=== PATIENT | female | born 1950 | race African-American/Black ===

== ENCOUNTER 2021-05-10 07:42 | Inpatient (IN) | payer MEDICARE, MEDICAID ==
[~2021-05-10] VITALS: Ht 160 cm; Wt 100.6 kg
[2021-05-10] VITALS (13 sets, daily range): BP systolic 141–200; BP diastolic 63–93
[2021-05-10] MEDS ORDERED: LABETALOL 100MG/20ML VIAL IV STA ×2 (08:06→10:00)
[2021-05-10] MEDS ORDERED: FURO20TA2 PO (08:10)
[2021-05-10] MEDS ORDERED: LOSA100T50 PO (08:10)
[2021-05-10] MEDS ORDERED: CARV25TA PO (08:10)
--- NOTE | 2021-05-10 08:31 | REP ---
INDICATION: CVA - Nursing interventions must not delay CT COMPARISON: None. TECHNIQUE: Axial noncontrast images from the skull base to the thoracic inlet with coronal reformations. This CT examination was performed using the following dose reduction techniques: Automated exposure control, adjustment of mA and/or kv according to the patient's size, and use of iterative reconstruction technique. FINDINGS: Atrophy with periventricular leukomalacia and microvascular ischemic changes are appreciated. The ventricles and sulci are symmetric. Bucio-white differentiation is maintained. There is no evidence for acute intracranial hemorrhage, mass/mass effect, pathology or infarction. No extra-axial fluid collection. Calvarium is intact. Paranasal sinuses and mastoid air cells are clear. IMPRESSION: Atrophy and microvascular ischemic changes. No acute intracranial hemorrhage, infarction, or mass/mass effect. <Electronically signed by Bj Gomes > 05/10/21 [id number]
[2021-05-10 09:06] LABS: BASO % 0.4 % (0.0-1.0); EOS # 0.1 10^3/uL (0.0-0.5); EOS % 1.1 % (0.0-3.0); HEMATOCRIT 43.2 % (36.0-47.0); HEMOGLOBIN 14.2 g/dl (12.0-15.5); LYMPH # 1.6 10^3/uL (1.5-5.0); LYMPH % 17.1 % (24.0-44.0); MEAN CORPUSCULAR HEMOGLOBIN 28.5 pg (27.0-33.0); MEAN CORPUSCULAR HGB CONC 32.9 g/dl (32.0-36.5); MEAN CORPUSCULAR VOLUME 86.6 fl (80.0-96.0); MONO # 0.8 10^3/uL (0.0-0.8); MONO % 8.2 % (2.0-8.0); NEUTROPHILS # 6.7 10^3/uL (1.5-8.5); NEUTROPHILS % 72.9 % (36.0-66.0); PLATELET COUNT, AUTOMATED 241 10^3/uL (150-450); RED BLOOD COUNT 4.99 10^6/uL (4.00-5.40); WHITE BLOOD COUNT 9.2 10^3/uL (4.0-10.0)
--- NOTE | 2021-05-10 09:26 | REP ---
INDICATION: CVA COMPARISON: None. TECHNIQUE: Portable AP view of the chest FINDINGS: The mediastinum and cardiac silhouette are within normal limits for portable technique. The lung nagy are clear without acute consolidation, effusion, or pneumothorax. Skeletal structures are intact. IMPRESSION: No acute cardiopulmonary process appreciated. <Electronically signed by Bj Gomes > 05/10/21 [id number]
[2021-05-10 09:38] LABS: CK-MB VALUE MASS 1.4 NG/ML (<3.6); MB/CK RELATIVE INDEX 0.58 (< OR =4); TROPONIN I 0.03 NG/ML (< 0.10)
[2021-05-10 09:59] LABS: RSV AMPLIFICATION NEGATIVE (NEGATIVE)
[2021-05-10] MEDS ORDERED: LOSARTAN 50MG TABLET PO ONE (10:05)
[2021-05-10] MEDS ORDERED: [UNRECOGNIZED DRUG - OTHER] PO (10:48)
[2021-05-10] MEDS ORDERED: MAGNESIUM PO (10:48)
[2021-05-10] MEDS ORDERED: KCL PO (10:48)
[2021-05-10] MEDS ORDERED: [UNRECOGNIZED DRUG - OTHER] PO (10:48)
[2021-05-10] MEDS ORDERED: D31000TA2 PO (10:48)
[2021-05-10] MEDS ORDERED: CODCAP25 PO (10:48)
[2021-05-10] MEDS ORDERED: MAGN250T22 PO (10:48)
[2021-05-10] MEDS ORDERED: HOME MED LIST COMPLETE! XX SCH (10:50)
[2021-05-10] MEDS ORDERED: ASPIRIN 81 MG CHEW TABLET PO ONE (11:00)
[2021-05-10] MEDS ORDERED: ACETAMINOPHEN TAB 650MG DOSE (2X325MG) PO PRN (11:00)
[2021-05-10] MEDS ORDERED: niCARdipine IV 40 MG in IV 1 EA IV SCH (11:00)
[2021-05-10] MEDS ORDERED: GLUCOSE 4GM CHEW TABLET PO PRN (11:15)
[2021-05-10] MEDS ORDERED: GLUCAGON INJ 1MG VIAL SC PRN (11:15)
[2021-05-10] MEDS ORDERED: DEXTROSE 50% 50 ML SYRINGE IV PRN (11:15)
--- NOTE | 2021-05-10 11:29 | HPEPDOC ---
General Date of Admission 05/10/21 Date of Service: May 10, 2021 Chief Complaint The patient is a 70-year-old female admitted with a reason for visit of Weakness. Source: Patient Exam Limitations: No limitations History of Present Illness Patient is 70 years old female with past medical history of sarcoidosis, hypertension, hyperlipidemia, stroke in 2003 presented to the hospital with hypertensive emergency and right leg weakness. Patient stated that yesterday around 5 PM she developed right leg weakness and she could not stand up. The right leg weakness lasted around 2 hours and then completely resolved. Patient stated that her daughter noticed some difficulties in her speech, subsequently completely resolved. Today in the morning patient had right leg weakness again which resolved when she arrived in ER. In ER patient was found to have elevated blood pressure 238/113, EKG showed sinus rhythm, head CT was negative for acute stroke. Chest x-ray showed no acute cardiopulmonary process. Home Medications Scheduled Carvedilol (Carvedilol) 25 Mg Tablet, 12.5 MG PO BID, (Reported) Cholecalciferol (Vitamin D3) (Vitamin D3) 1,000 Unit Tablet, 1,000 UNITS PO DERIK Y, (Reported) Furosemide (Furosemide) 20 Mg Tablet, 20 MG PO BID, (Reported) HAS NOT TAKEN IN 2 MONTHS Losartan Potassium (Losartan Potassium) 100 Mg Tablet, 100 MG PO QHS, (Reported) Magnesium (Magnesium) 250 Mg Tablet, 250 MG PO DAILY, (Reported) Vit A and D3 in Cod Liver Oil (Cod Liver Oil Softgel) 1 Each Capsule, 1 CAP PO DAILY, (Reported) [Kcl/Magnesium] , 1 CAP PO DAILY, (Reported) KCL/MAGNESIUM ASPARTATE 50MG/20MG [Wild Oregano Oil] , 175 MG PO DAILY, (Reported) [Zinc Quercetin] , 1 CAP PO DAILY, (Reported) 22MG / 800MG Allergies Coded Allergies: Penicillins (Verified Allergy, Mild, rash, 05/10/21) iodine (Verified Allergy, Unknown, burning sensation, 05/10/21) Past Medical History Medical History sarcoidosis, hypertension, hyperlipidemia, stroke in 2003, type 2 diabetes Family History Patient stated that her mom had a stroke, father had hypertension Social History * Smoker: Denies Alcohol: Denies Drugs: denies A-FIB/CHADSVASC A-FIB History Current/History of A-Fib/PAF?: No Current PO Anticoag Therapy: No Review of Systems Constitutional: Denies: Chills Eyes: Denies: Pain ENT: Denies: Head Aches Skin: Denies: Rash, Lesions Pulmonary: Denies: Dyspnea Cardiovascular: Denies: Chest Pain Genitourinary: Denies: Dysuria Hematologic: Denies: Bruising, Bleeding Excessively Endocrine: Denies: Polydipsia Musculoskeletal: Denies: Neck Pain Neurological: Reports: Weakness (right leg weakness ) Psych: Reports: Mood Normal Physical Examination General Exam: Positive: Alert, Cooperative Eye Exam: Positive: PERRLA ENT Exam: Positive: Atraumatic Neck Exam: Positive: Supple; Negative: JVD Chest Exam: Positive: Clear to auscultation Heart Exam: Positive: Rate Normal Telemetry: Positive: No significant arrhythmia Abdomen Exam: Positive: Normal bowel sounds Extremity Exam: Negative: Clubbing, Cyanosis Skin Exam: Positive: Nl turgor and temperature Neuro Exam: Positive: Normal Gait, Strength at 5/5 X4 ext, Cranial Nerves 3-12 NL Psych Exam: Positive: Oriented x 3 Vital Signs Vital Signs Date Time Temp Pulse Resp B/P (MAP) Pulse Ox O2 Delivery O2 Flow Rate FiO2 05/10/21 10:27 69 16 97 Room Air 05/10/21 10:17 230/117 (154) 05/10/21 07:43 97.7 Laboratory Data Labs 24H Laboratory Tests 2 05/10/21 08:05: Immature Granulocyte % (Auto) 0.3, Neutrophils (%) (Auto) 72.9H, Lymphocytes (%) (Auto) 17.1L, Monocytes (%) (Auto) 8.2H, Eosinophils (%) (Auto) 1.1, Basophils (%) (Auto) 0.4, Neutrophils # (Auto) 6.7, Lymphocytes # (Auto) 1.6, Monocytes # (Auto) 0.8, Eosinophils # (Auto) 0.1, Basophils # (Auto) 0.0, Nucleated Red Blood Cells % (auto) 0.0, Activated Partial Thromboplast Time 28.3, Total Creati ne Kinase 243H, Creatine Kinase MB 1.4, Creatine Kinase MB Relative Index 0.58, Troponin I 0.03 05/10/21 08:29: Bedside Glucose (Misc Panel) 139H 05/10/21 08:30: POC Glucose (Misc Panel) 152H, POC Sodium (Misc Panel) 141, POC Potassium (Misc Panel) 3.7, POC Chloride (Misc Panel) 105, POC Total CO2 (Misc Panel) 24.0, POC Blood Urea Nitrogen (Misc Panel 20, POC Ionized Calcium (Misc Panel) 4.6, POC Creatinine (Misc Panel) 0.8, POC Hematocrit (Misc Panel) 42.0 05/10/21 08:47: POC Prothrombin Time (Misc) 12.1, POC INR (Misc) 1.0 05/10/21 09:08: Coronavirus (COVID-19)(PCR) NEGATIVE, Influenza Type A (RT-PCR) NEGATIVE, Influenza Type B (RT-PCR) NEGATIVE, Respiratory Syncytial Virus (PCR) NEGATIVE CBC/BMP Laboratory Tests 05/10/21 08:05 Assessment/Plan Patient is 70 years old female with past medical history of sarcoidosis, hypertension, hyperlipidemia, stroke in 2003 presented to the hospital with hypertensive emergency and right leg weakness. Patient stated that yesterday around 5 PM she developed right leg weakness and she could not stand up. The right leg weakness lasted around 2 hours and then completely resolved. Patient stated that her daughter noticed some difficulties in her speech, subsequently completely resolved. Today in the morning patient had right leg weakness again which resolved when she arrived in ER. In ER patient was found to have elevated blood pressure 238/113, EKG showed sinus rhythm, head CT was negative for acute stroke. Chest x-ray showed no acute cardiopulmonary process. Problems (1) TIA (transient ischemic attack) Status: Acute Problem Text: Patient has multiple risk factors including type 2 diabetes, previous history of stroke, hypertension We will proceed with echo, MRI, MRA Aspirin, statin Telemetry (2) Hypertensive emergency Status: Chronic Problem Text: Her neurological presentation could be attributed to hypertensive emergency, however patient has multiple risk factors for stroke We will keep her blood pressure in the range 160-180 Nicardipine drip Continue home meds (3) HLD (hyperlipidemia) Status: Chronic Problem Text: I started high potency atorvastatin 80 mg Patient did not take statin (4) Sarcoidosis Status: Chronic Problem Text: Not in acute exacerbation Follow-up with director of global sales in the outpatient settings Plan / VTE VTE Prophylaxis Ordered?: Yes ALHAJI KEENE DO May 10, 2021 11:29
[2021-05-10] MEDS ORDERED: hydrALAZINE 20MG/ML 1ML VIAL (J0360 PER 20MG) IV STA (11:35)
[2021-05-10] MEDS: FUROSEMIDE 20 MG TAB PO SCH ×2 (11:55→17:11)
[2021-05-10] MEDS: HumaLOG INSULIN (NovoLOG) PER UNIT SC SCH ×3 (12:51→20:55)
--- NOTE | 2021-05-10 20:15 | ECGEPIP ---
[facility] - ED Test Date: 2021-05-10 Pat Name: MELODY PARSONS Department: Room: - Gender: Female Labourers: : 1950 Requested By: Anita Carrillo Order Number: [id number] Reading MD: Toñito Edwards Measurements Intervals Richardson Rate: 73 P: 50 CT: 180 QRS: -45 QRSD: 98 T: 99 QT: 424 QTc: 467 Interpretive Statements Normal sinus rhythm Left anterior fascicular block Moderate voltage criteria for LVH, may be normal variant ( R in aVL , [place] product ) Nonspecific T wave abnormality Comparison tracing not on file Electronically Signed on 05-10-2021 20:15:05 EDT by Toñito Edwards
[2021-05-10] MEDS: CARVedilol 12.5 MG TAB PO SCH (20:56)
[2021-05-10] MEDS: ATORVASTATIN 20 MG TAB PO SCH (20:56)
--- NOTE | 2021-05-10 22:31 | REPVR ---
PROCEDURE INFORMATION: Exam: MRA Head Without Contrast; Arteriography Exam date and time: 05/10/2021 8:47 PM Age: 70 years old Clinical indication: Weakness; Patient HX: HX prior CVA; Additional info: TIA TECHNIQUE: Imaging protocol: Magnetic resonance angiography head without contrast. Exam focused on the arteries. COMPARISON: CT Head without contrast 2021-05-10 08:07 FINDINGS: ANTERIOR CIRCULATION: Right internal carotid artery: Intracranial segment is patent with no significant stenosis. No aneurysm. Right middle cerebral artery: Minimal right MCA atherosclerosis. Right anterior cerebral artery: No occlusion or significant stenosis. No aneurysm. Left internal carotid artery: Question small left medial paraclinoid ICA aneurysm measuring 4 mm on series 801, image 107. Left middle cerebral artery: Mild moderate left MCA atherosclerotic disease. The major branches of the left MCA are widely patent. Left anterior cerebral artery: No occlusion or significant stenosis. No aneurysm. POSTERIOR CIRCULATION: Right vertebral artery: No occlusion or significant stenosis. No aneurysm. Left vertebral artery: Mild left vertebral artery distal intracranial artery stenosis. Basilar artery: No occlusion or significant stenosis. No aneurysm. Right posterior cerebral artery: Moderate severe focal right [employer] P1/P2 junction segment stenosis. Question right posterior communicating artery tiny infundibulum versus aneurysm measuring 2 mm on series 801, image 105. Left posterior cerebral artery: Moderate focal left [employer] P1/P2 junction stenosis. IMPRESSION: 1. Moderate severe focal right [employer] P1/P2 junction segment stenosis. 2. Moderate focal left [employer] P1/P2 junction stenosis. Mild left vertebral artery distal intracranial artery stenosis. 3. Minimal right MCA atherosclerosis. Mild moderate left MCA atherosclerotic disease. The major branches of the left MCA are widely patent. 4. Question small left medial paraclinoid ICA aneurysm measuring 4 mm on series 801, image 107. 5. Question right posterior communicating artery tiny infundibulum versus aneurysm measuring 2 mm on series 801, image 105. Electronically signed by: Toñito Olivares On 05/10/2021 22:31:22 PM
--- NOTE | 2021-05-10 22:31 | REPVR ---
PROCEDURE INFORMATION: Exam: MR Head Without Contrast Exam date and time: 05/10/2021 8:47 PM Age: 70 years old Clinical indication: Weakness, extremity; Left; Patient HX: HX prior CVA 2003; Additional info: TIA TECHNIQUE: Imaging protocol: MR of the head without contrast. COMPARISON: CT Head without contrast 2021-05-10 08:07 FINDINGS: Brain: Couple small punctate acute lacunar infarcts within the left frontal centrum semi ovale, and left pre and postcentral gyrus cortex. Mild chronic FLAIR signal hyperintense cerebral white matter disease. Several chronic periventricular and basal ganglia lacunar infarcts. Chronic gradient susceptible foci compatible with chronic blood products or cavernomas, with the predilection for central christ[place] structures indicating likely from chronic hypertensive microhemorrhages. Cerebral ventricles: Normal. No ventriculomegaly. Bones/joints: Unremarkable. Paranasal sinuses: Normal as visualized. No acute sinusitis. Mastoid air cells: Normal as visualized. No mastoid effusion. Orbital cavity: Unremarkable. Soft tissues: Unremarkable. IMPRESSION: 1. Couple small punctate acute lacunar infarcts within the left frontal centrum semi ovale, and left pre and postcentral gyrus cortex. 2. Chronic gradient susceptible foci compatible with chronic blood products or cavernomas, with the predilection for [place] structures indicating likely from chronic hypertensive microhemorrhages. Electronically signed by: Toñito Olivares On 05/10/2021 22:32:06 PM
[2021-05-11] VITALS (19 sets, daily range): BP systolic 156–196; BP diastolic 62–104
[2021-05-11] MEDS ORDERED: hydrALAZINE 20MG/ML 1ML VIAL (J0360 PER 20MG) IV ONE (05:00)
[2021-05-11 05:22] LABS: HEMATOCRIT 42.6 % (36.0-47.0); HEMOGLOBIN 14.2 g/dl (12.0-15.5); MEAN CORPUSCULAR HEMOGLOBIN 29.2 pg (27.0-33.0); MEAN CORPUSCULAR HGB CONC 33.3 g/dl (32.0-36.5); MEAN CORPUSCULAR VOLUME 87.5 fl (80.0-96.0); PLATELET COUNT, AUTOMATED 250 10^3/uL (150-450); RED BLOOD COUNT 4.87 10^6/uL (4.00-5.40); WHITE BLOOD COUNT 10.3 10^3/uL (4.0-10.0)
[2021-05-11 05:54] LABS: ALBUMIN 3.2 GM/DL (3.2-5.2); ALT/SGPT 21 U/L (12-78); BILIRUBIN,TOTAL 0.9 MG/DL (0.2-1.0); BLOOD UREA NITROGEN 14 MG/DL (7-18); CALCIUM LEVEL 9.1 MG/DL (8.8-10.2); CARBON DIOXIDE LEVEL 27 MEQ/L (21-32); CHLORIDE LEVEL 109 MEQ/L (98-107); CREATININE FOR GFR 0.78 MG/DL (0.55-1.30); GLOMERULAR FILTRATION RATE > 60.0 (>39); GLUCOSE, FASTING 115 MG/DL (70-100); POTASSIUM SERUM 3.7 MEQ/L (3.5-5.1); SODIUM LEVEL 141 MEQ/L (136-145); TOTAL PROTEIN 7.3 GM/DL (6.4-8.2)
[2021-05-11] MEDS: HumaLOG INSULIN (NovoLOG) PER UNIT SC SCH ×4 (07:30→19:51)
--- NOTE | 2021-05-11 08:25 | REP ---
INDICATION: Hypertension. R/O Renal Artery Stenosis COMPARISON: None. TECHNIQUE: Real-time ultrasound evaluation and duplex Doppler interrogation of the extracranial carotid vasculature is performed. FINDINGS: Antegrade flow is observed in both vertebral arteries. Right carotid: The right common carotid artery shows diffuse intimal thickening but is otherwise unremarkable. There ismild mixed plaquing in the right carotid bulb and proximal ICA on two-dimensional scanning. Color flow and spectral Doppler interrogation are unremarkable on the right. Velocity chart right carotid: Right CCA PSV: 95 cm/S Right ICA PSV: 75 cm/S Right ICA EDV: 19 cm/S Right ECA PSV: 104 cm/S Right ICA/CCA ratio: 0.8 Left carotid: The left common carotid artery shows diffuse intimal thickening but is otherwise unremarkable. There is moderate mixed plaquing in the left carotid bulb and proximal ICA on two-dimensional scanning. Color flow and spectral Doppler interrogation are unremarkable on the left. Velocity chart left carotid: Left CCA PSV: 124 cm/S Left ICA PSV: 88 cm/S Left ICA EDV: 25 cm/S Left ECA PSV: 104 cm/S Left ICA/CCA ratio: 0.7 IMPRESSION: Less than 50% category narrowing in the right internal carotid artery by Doppler velocity criteria. Less than 50% category narrowing in the left ICA by Doppler velocity criteria. <Electronically signed by Taco Cavazos > 05/11/21 [id number]
--- NOTE | 2021-05-11 08:29 | REP ---
INDICATION: Hypertension. R/O Renal Artery Stenosis COMPARISON: None TECHNIQUE: Real time christianson scale ultrasound examination using curved array transducer followed by color Doppler evaluation of the renal vasculature. FINDINGS: Kidneys are normal in contour, size, echogenicity, and reniform shape. Right kidney measures 12.8 x 4.4 x 4.6 cm. Left kidney measures 11.1 x 4.4 x 5.0 cm. The bladder is grossly unremarkable. Color Doppler evaluation is significantly limited and overlying abdominal gas obscured evaluation of the bilateral main renal arteries. Renal artery velocities could only be obtained at the renal hilum and are inaccurate for evaluation of renal arterial stenosis. Peak aortic velocity: 95.4 centimeters/second RIGHT KIDNEY Renal arterial velocity: 120.9 centimeters/second Renal-aortic ratio: 1.3 Intrarenal resistive indices: 0.62-0.79 Intrarenal acceleration times: 0.033-0.058 LEFT KIDNEY Renal arterial velocity: 77.1 centimeters/second Renal-aortic ratio: 0.8 Intrarenal resistive indices: 0.59-0.67 Intrarenal acceleration times: 0.029-0.042 IMPRESSION: 1. Kidneys appear normal. 2. Doppler interegation was significantly limited and essentially nondiagnostic for evaluation of renal arterial stenosis. Consider re-evaluation or MRA if symptoms persist. <Electronically signed by Bj Gomes > 05/11/21 [id number]
[2021-05-11] MEDS: ENOXAPARIN 40MG/0.4ML SYRINGE (J1650 PER 10MG) SC SCH (09:04)
[2021-05-11] MEDS: ASPIRIN 81 MG CHEW TABLET PEG SCH (09:05)
[2021-05-11] MEDS: CARVedilol 12.5 MG TAB PO SCH ×2 (09:05→19:51)
[2021-05-11] MEDS: FUROSEMIDE 20 MG TAB PO SCH ×2 (09:05→16:57)
[2021-05-11] MEDS ORDERED: SLF 3 ML SYR IV PRN (09:50)
--- NOTE | 2021-05-11 13:16 | IPNPDOC ---
Text Note Date of Service The patient was seen on 05/11/21. NOTE Subjective: Patient told me in the morning that around 2 months ago she stopped taking all your antihypertensive medications and she replaced them for herbal supplements. Objective: GENERAL APPEARANCE: Obese female HEENT: no scleral icterus, no JVD, EOMI CARDIOVASCULAR: S1S2 LUNGS: Diminished lung sounds bilaterally ABDOMEN: soft & not tender w palpation MUSCULOSKELETAL: no cyanosis, no swelling INTEGUMENT: no generalized pallor NEUROLOGICAL: cranial nerve function from 2-12 intact, follows commands, speech not dysarthric Assessment/Plan Patient is 70 years old female with past medical history of sarcoidosis, hypertension, hyperlipidemia, stroke in 2003 presented to the hospital with hypertensive emergency and right leg weakness. Patient stated that yesterday ar ound 5 PM she developed right leg weakness and she could not stand up. The right leg weakness lasted around 2 hours and then completely resolved. Patient stated that her daughter noticed some difficulties in her speech, subsequently completely resolved. Today in the morning patient had right leg weakness again which resolved when she arrived in ER. In ER patient was found to have elevated blood pressure 238/113, EKG showed sinus rhythm, head CT was negative for acute stroke. Chest x-ray showed no acute cardiopulmonary process. CVA Most likely secondary to uncontrolled blood pressure MRI showed Couple small punctate acute lacunar infarcts within the left frontal centrum semi ovale, and left pre and postcentral gyrus cortex. Continue statin, continue aspirin Continue to control blood pressure Await echo Follow-up with neurologist in the outpatient settings Doppler carotid ultrasound shows not significant stenosis of both arteries PT/OT Hypertensive emergency/hypertension Continue losartan, I added hydralazine p.o. for better control of hypertension HLD (hyperlipidemia) Continue atorvastatin 80 mg Patient did not take statin before Sarcoidosis Not in acute exacerbation Follow-up with assistant engineer in the outpatient settings DVT prophylaxis with Lovenox VS,Fishbone, I+O VS, Fishbone, I+O Laboratory Tests 05/11/21 04:57 Vital Signs Date Time Temp Pulse Resp B/P (MAP) Pulse Ox O2 Delivery O2 Flow Rate FiO2 05/11/21 12:15 168/92 05/11/21 11:38 97.0 75 18 96 Room Air I&O- Last 24 Hours up to 6 AM 05/11/21 06:00 Intake Total 540 ml Output Total 1000 ml Balance -460 ml DROZHZHIN,ALHAJI DO May 11, 2021 13:16
[2021-05-11] MEDS ORDERED: BISACODYL 5 MG TAB PO ONE (13:45)
[2021-05-11] MEDS ORDERED: **hydrALAZINE** 10 MG TAB PO SCH ×2 (14:00→19:30)
[2021-05-11] MEDS: SLF 3 ML SYR IV SCH ×2 (14:26→20:47)
[2021-05-11] MEDS: LABETALOL 100MG/20ML VIAL IV PRN (18:03)
[2021-05-11] MEDS: ATORVASTATIN 20 MG TAB PO SCH (19:51)
[2021-05-11] MEDS: LOSARTAN 50MG TABLET PO SCH (19:51)
[2021-05-11] MEDS: **hydrALAZINE** 10 MG TAB PO SCH (20:47)
[2021-05-12] VITALS (11 sets, daily range): BP systolic 142–182; BP diastolic 66–106
[2021-05-12] MEDS: LABETALOL 100MG/20ML VIAL IV PRN ×2 (03:46→08:47)
[2021-05-12] MEDS: SLF 3 ML SYR IV SCH ×3 (05:17→21:44)
[2021-05-12] MEDS: **hydrALAZINE** 10 MG TAB PO SCH ×3 (05:18→21:47)
[2021-05-12 06:26] LABS: HEMATOCRIT 44.1 % (36.0-47.0); HEMOGLOBIN 14.4 g/dl (12.0-15.5); MEAN CORPUSCULAR HEMOGLOBIN 28.8 pg (27.0-33.0); MEAN CORPUSCULAR HGB CONC 32.7 g/dl (32.0-36.5); MEAN CORPUSCULAR VOLUME 88.2 fl (80.0-96.0); PLATELET COUNT, AUTOMATED 238 10^3/uL (150-450); WHITE BLOOD COUNT 10.4 10^3/uL (4.0-10.0)
[2021-05-12 06:53] LABS: BLOOD UREA NITROGEN 13 MG/DL (7-18); CALCIUM LEVEL 9.2 MG/DL (8.8-10.2); CARBON DIOXIDE LEVEL 29 MEQ/L (21-32); CHLORIDE LEVEL 107 MEQ/L (98-107); GLOMERULAR FILTRATION RATE > 60.0 (>39); GLUCOSE, FASTING 117 MG/DL (70-100); POTASSIUM SERUM 3.3 MEQ/L (3.5-5.1); SODIUM LEVEL 141 MEQ/L (136-145)
[2021-05-12] MEDS: ASPIRIN 81 MG CHEW TABLET PEG SCH (08:37)
[2021-05-12] MEDS: HumaLOG INSULIN (NovoLOG) PER UNIT SC SCH ×4 (08:37→20:17)
[2021-05-12] MEDS: FUROSEMIDE 20 MG TAB PO SCH ×2 (08:38→17:57)
[2021-05-12] MEDS: CARVedilol 12.5 MG TAB PO SCH ×2 (08:38→20:14)
[2021-05-12] MEDS: ENOXAPARIN 40MG/0.4ML SYRINGE (J1650 PER 10MG) SC SCH (08:39)
[2021-05-12] MEDS ORDERED: BISACODYL 5 MG TAB PO SCH (09:00)
[2021-05-12] MEDS ORDERED: POTASSIUM CHLORIDE 10 MEQ SR TABLET PO ONE (10:35)
--- NOTE | 2021-05-12 12:01 | IPNPDOC ---
Text Note Date of Service The patient was seen on 05/12/21. NOTE Subjective: No any acute events overnight. Patient stated that she had some dizziness when she seated up. Objective: GENERAL APPEARANCE: Obese female HEENT: no scleral icterus, no JVD, EOMI CARDIOVASCULAR: S1S2 LUNGS: Diminished lung sounds bilaterally ABDOMEN: soft & not tender w palpation MUSCULOSKELETAL: no cyanosis, no swelling INTEGUMENT: no generalized pallor NEUROLOGICAL: cranial nerve function from 2-12 intact, follows commands, speech not dysarthric Assessment/Plan Patient is 70 years old female with past medical history of sarcoidosis, hypertension, hyperlipidemia, stroke in 2003 presented to the hospital with hypertensive emergency and right leg weakness. Patient stated that yesterday around 5 PM she developed right leg weakness and she could not stand up. The right leg weakness lasted around 2 hours and then completely resolved. Patient stated that her daughter noticed some difficulties in her speech, subsequently completely resolved. Today in the morning patient had right leg weakness again which resolved when she arrived in ER. In ER patient was found to have elevated blood pressure 238/113, EKG showed sinus rhythm, head CT was negative for acute stroke. Chest x-ray showed no acute cardiopulmonary process. CVA Most likely secondary to uncontrolled blood pressure MRI showed Couple small punctate acute lacunar infarcts within the left frontal centrum semi ovale, and left pre and postcentral gyrus cortex. Continue statin, continue aspirin Continue to control blood pressure Await echo Follow-up with neurologist in the outpatient settings Doppler carotid ultrasound shows not significant stenosis of both arteries PT/OT Hypertensive emergency/hypertension Continue losartan, I added and increased with dose of hydralazine p.o. for better control of hypertension. In the morning her systolic blood pressure was around 180, decreased to 143/80 after morning dose of medications HLD (hyperlipidemia) Continue atorvastatin 80 mg Patient did not take statin before Sarcoidosis Not in acute exacerbation Follow-up with business development coordinator in the outpatient settings DVT prophylaxis with Lovenox VS,Fishbone, I+O VS, Fishbone, I+O Laboratory Tests 05/12/21 05:22 Vital Signs Date Time Temp Pulse Resp B/P (MAP) Pulse Ox O2 Delivery O2 Flow Rate FiO2 05/12/21 11:07 98.5 73 18 162/86 (111) 98 Room Air I&O- Last 24 Hours up to 6 AM 05/12/21 06:00 Intake Total 1420 ml Output Total 1200 ml Balance 220 ml ALHAJI KEENE DO May 12, 2021 12:01
[2021-05-12] MEDS: LOSARTAN 50MG TABLET PO SCH (20:14)
[2021-05-12] MEDS: ATORVASTATIN 20 MG TAB PO SCH (20:15)
[2021-05-13] VITALS: BP_SYST 153; BP_DIAS 70; BP_DIAS 71
[2021-05-13 04:00] VITALS: BP 140/65
[2021-05-13] MEDS: SLF 3 ML SYR IV SCH (05:12)
[2021-05-13] MEDS: **hydrALAZINE** 10 MG TAB PO SCH ×2 (05:12→12:30)
[2021-05-13] MEDS ORDERED: POTASSIUM CHLORIDE 10 MEQ SR TABLET PO ONE (07:30)
[2021-05-13 08:00] VITALS: BP 174/76
[2021-05-13] MEDS: BISACODYL 5 MG TAB PO SCH ×2 (09:00→09:47)
[2021-05-13 09:30] VITALS: BP 142/65
[2021-05-13] MEDS: ENOXAPARIN 40MG/0.4ML SYRINGE (J1650 PER 10MG) SC SCH (09:43)
[2021-05-13] MEDS: HumaLOG INSULIN (NovoLOG) PER UNIT SC SCH ×2 (09:44→12:00)
[2021-05-13] MEDS: ASPIRIN 81 MG CHEW TABLET PEG SCH (09:45)
[2021-05-13] MEDS: FUROSEMIDE 20 MG TAB PO SCH (09:47)
[2021-05-13 09:48] VITALS: BP 142/65
[2021-05-13] MEDS: CARVedilol 12.5 MG TAB PO SCH (09:48)
[2021-05-13] MEDS ORDERED: ATOR1TAB21 PO (10:38)
[2021-05-13] MEDS ORDERED: ASPI81CH8 PEG (10:38)
[2021-05-13] MEDS ORDERED: AMLO1TAB25 PO (10:38)
[2021-05-13] MEDS ORDERED: HYDR10TAB PO (10:38)
[2021-05-13] MEDS ORDERED: FURO20TA2 PO (10:39)
[2021-05-13 12:00] VITALS: BP 134/62
--- NOTE | 2021-05-13 15:22 | DS.PDOC ---
Discharge Summary General Date of Admission May 10, 2021 at 10:59 Date of Discharge 05/13/21 Discharge Summary PROCEDURES PERFORMED DURING STAY: [None]. ADMITTING DIAGNOSES: CVA Hypertensive emergency/hypertension HLD (hyperlipidemia) Sarcoidosis DISCHARGE DIAGNOSES: CVA Hypertensive emergency/hypertension HLD (hyperlipidemia) Sarcoidosis COMPLICATIONS/CHIEF COMPLAINT: Hypertensive Urgency, Tia. HISTORY OF PRESENT ILLNESS:Patient is 70 years old female with past medical history of sarcoidosis, hypertension, hyperlipidemia, stroke in 2003 presented to the hospital with hypertensive emergency and right leg weakness. Patient stated that yesterday around 5 PM she developed right leg weakness and she could not stand up. The right leg weakness lasted around 2 hours and then completely resolved. Patient stated that her daughter noticed some difficulties in her speech, subsequently completely resolved. Today in the morning patient had right leg weakness again which resolved when she arrived in ER. In ER patient was found to have elevated blood pressure 238/113, EKG showed sinus rhythm, head CT was negative for acute stroke. Chest x-ray showed no acute cardiopulmonary process. HOSPITAL COURSE: During the hospital stay the following issues addressed CVA Most likely secondary to uncontrolled blood pressure MRI showed Couple small punctate acute lacunar infarcts within the left frontal centrum semi ovale, and left pre and postcentral gyrus cortex. started statin, aspirin. Patient was not compliant to her hypertension treatment echo pending Follow-up with neurologist in the outpatient settings Doppler carotid ultrasound shows not significant stenosis of both arteries Patient received PT/OT Hypertensive emergency/hypertension Continue losartan, I added and increased with dose of hydralazine p.o. for better control of hypertension. Patient will need close follow-up with PCP and partition setter HLD (hyperlipidemia) Continue atorvastatin 80 mg Patient did not take statin before Sarcoidosis Not in acute exacerbation Follow-up with digital press operator in the outpatient settings DISCHARGE MEDICATIONS: Please see below. ALLERGIES: Please see below. PHYSICAL EXAMINATION ON DISCHARGE: VITAL SIGNS: Please see below. GENERAL APPEARANCE: Obese female HEENT: no scleral icterus, no JVD, EOMI CARDIOVASCULAR: S1S2 LUNGS: Diminished lung sounds bilaterally ABDOMEN: soft & not tender w palpation MUSCULOSKELETAL: no cyanosis, no swelling INTEGUMENT: no generalized pallor NEUROLOGICAL: cranial nerve function from 2-12 intact, follows commands, speech not dysarthric LABORATORY DATA: Please see below. IMAGING: [facility] NAME: MELODY PARSONS DATE OF : 1950 BUSINESS NUMBER: [id number] AGE: 70 SEX: F REPORT #: [id number] ROOM: ICU TECHNOLOGIST: MAURO DOCTOR: ALHAJI KEENE DO Ordered for Date&Time: 05/10/21 1134 cc: [~ rep ct ivnm] Service Date&Time: 05/10/212046 This report is in Signed status. Interpretation performed by [facility]. Thank you for having your radiology procedures performed at [facility] RADIOLOGY REPORT Date&Time printed: [~ rep prt dt last] [~ rep prt tm last] Page 2 of 2 [place] [id number] RADIOLOGY REPORT This report is in Signed status. Interpretation performed by [facility]. Thank you for having your radiology procedures performed at [facility] RADIOLOGY REPORT Date&Time printed: [~ rep prt dt last] [~ rep prt tm last] Page 1 of 2 PROCEDURE INFORMATION: Exam: MR Head Without Contrast Exam date and time: 05/10/2021 8:47 PM Age: 70 years old Clinical indication: Weakness, extremity; Left; Patient HX: HX prior CVA 2003; Additional info: TIA TECHNIQUE: Imaging protocol: MR of the head without contrast. COMPARISON: CT Head without contrast 2021-05-10 08:07 FINDINGS: Brain: Couple small punctate acute lacunar infarcts within the left frontal centrum semi ovale, and left pre and postcentral gyrus cortex. Mild chronic FLAIR signal hyperintense cerebral white matter disease. Several chronic periventricular and basal ganglia lacunar infarcts. Chronic gradient susceptible foci compatible with chronic blood products or cavernomas, with the predilection for [place] structures indicating likely from chronic hypertensive microhemorrhages. Cerebral ventricles: Normal. No ventriculomegaly. Bones/joints: Unremarkable. Paranasal sinuses: Normal as visualized. No acute sinusitis. Mastoid air cells: Normal as visualized. No mastoid effusion. Orbital cavity: Unremarkable. Soft tissues: Unremarkable. IMPRESSION: 1. Couple small punctate acute lacunar infarcts within the left frontal centrum semi ovale, and left pre and postcentral gyrus cortex. 2. Chronic gradient susceptible foci compatible with chronic blood products or cavernomas, with the predilection for [place] structures indicating likely from chronic hypertensive microhemorrhages. Electronically signed by: Salty Rinaldi On 05/10/2021 22:32:06 PM DD: SALTY RINALDI MD 05/10/212046 DT: TIFF 05/10/212231 DS: MARTIN 05/10/212231 [~ rep ct labl] PROGNOSIS: Fair ACTIVITY: [As tolerated]. DIET: Cardiac DISCHARGE PLAN: Home DISCHARGE INSTRUCTIONS: Take prescribed medications ITEMS TO FOLLOWUP ON ON OUTPATIENT: Follow-up with neurologist, partition setter and PCP DISCHARGE CONDITION: [Stable]. TIME SPENT ON DISCHARGE:40minutes. Vital Signs/I&Os Vital Signs Date Time Temp Pulse Resp B/P (MAP) Pulse Ox O2 Delivery O2 Flow Rate FiO2 05/13/21 12:00 99.7 76 16 134/62 (86) 97 Room Air I&O- Last 24 Hours up to 6 AM 05/13/21 06:00 Intake Total 1080 ml Output Total 300 ml Balance 780 ml Laboratory Data Labs 24H Laboratory Tests 2 05/12/21 17:47: Bedside Glucose (Misc Panel) 101 05/12/21 20:08: Bedside Glucose (Misc Panel) 138H 05/13/21 08:05: Bedside Glucose (Misc Panel) 121H 05/13/21 12:31: Bedside Glucose (Misc Panel) 102 FSBS Laboratory Tests Test 05/12/21 17:47 05/12/21 20:08 05/13/21 08:05 05/13/21 12:31 Range/Units Bedside Glucose (Misc Panel) 101 138 121 102 83-110 MG/DL Discharge Medications Scheduled Amlodipine Besylate (Amlodipine Besylate) 10 Mg Tablet, 10 MG PO DAILY Aspirin (Children's Aspirin) 81 Mg Tab.chew, 81 MG PEG DAILY Atorvastatin Calcium (Atorvastatin Calcium) 20 Mg Tablet, 80 MG PO QHS Carvedilol (Carvedilol) 25 Mg Tablet, 12.5 MG PO BID, (Reported) Cholecalciferol (Vitamin D3) (Vitamin D3) 1,000 Unit Tablet, 1,000 UNITS PO DAILY, (Reported) Furosemide (Furosemide) 20 Mg Tablet, 20 MG PO BID HAS NOT TAKEN IN 2 MONTHS Hydralazine HCl (Hydralazine HCl) 10 Mg Tablet, 20 MG PO Q8H Losartan Potassium (Losartan Potassium) 100 Mg Tablet, 100 MG PO QHS, (Reported) Magnesium (Magnesium) 250 Mg Tablet, 250 MG PO DAILY, (Reported) Vit A and D3 in Cod Liver Oil (Cod Liver Oil Softgel) 1 Each Capsule, 1 CAP PO DAILY, (Reported) [Kcl/Magnesium] , 1 CAP PO DAILY, (Reported) KCL/MAGNESIUM ASPARTATE 50MG/20MG [Wild Oregano Oil] , 175 MG PO DAILY, (Reported) [Zinc Quercetin] , 1 CAP PO DAILY, (Reported) 22MG / 800MG Allergies Coded Allergies: Penicillins (Verified Allergy, Mild, rash, 05/10/21) iodine (Verified Allergy, Unknown, burning sensation, 05/10/21) ALHAJI KEENE DO May 13, 2021 15:22
--- NOTE | 2021-05-14 21:38 | ECHO ---
ECHOCARDIOGRAM DATE OF PROCEDURE: 05/11/2021 Age: 70 Gender: Female Height: 160 cm Weight: 101 kg REFERRING PHYSICIAN: Dr. Michelet Mckinney INDICATION: Transient cerebral ischemia unspecified MEASUREMENTS: 2D Measurements: Aortic root 2.8 cm Left atrium 4.0 cm Interventricular septum 1.26 cm Posterior wall 1.34 cm Left ventricle diastole 4.6 cm Aortic annulus 1.7 cm Inferior vena cava 2.0 cm Doppler Measurements: Very mild aortic regurgitation No aortic stenosis Aortic valve velocity 120 cm/sec LVOT velocity 92.0 cm/sec No mitral regurgitation Mitral E velocity 103.0 cm/sec Mitral A velocity 98.1 cm/sec Mitral deceleration time 169 msec No tricuspid regurgitation No pulmonic regurgitation Pulmonary artery acceleration time 129 msec DESCRIPTION: Rhythm was sinus. Image quality was adequate. No pericardial effusion. CONCLUSIONS: 1. Mild concentric left ventricular hypertrophy. Normal regional LV wall motion and wall thickening. Normal LV systolic function. LVEF 65% by visual estimate. Normal LV diastolic function. 2. Mild left atrial dilatation. 3. Mild aortic valve sclerosis of a 3-cusp aortic valve. Very mild aortic regurgitation. 4. Normal right ventricle size and systolic function. 5. There appears to be a bubble study performed from the apical four chamber view and if indeed a bubble study was performed, it would be considered negative for detection of right to left intracardiac shunting of intrapulmonary shunting.
== END 2021-05-13 15:52 | disposition home health service (06) | DRG 65 ==
LOC: M ED 08:54 → M ED INP 10:59 → ENRESERV 11:19 → M ICU 12:30 → M PCU 22:59
PROVIDERS: ADMIT Internal Medicine; ATTEND Internal Medicine
DX: I63.9 Cerebral infarction, unspecified (principal); I16.1 Hypertensive emergency; D86.9 Sarcoidosis, unspecified; E78.5 Hyperlipidemia, unspecified; Z86.73 Personal history of transient ischemic attack (TIA), and cerebral infarction without residual deficits; E11.9 Type 2 diabetes mellitus without complications; Z20.822 Contact with and (suspected) exposure to COVID-19; Z79.899 Other long term (current) drug therapy; Z88.0 Allergy status to penicillin; Z88.3 Allergy status to other anti-infective agents; Z91.14 Patient's other noncompliance with medication regimen

== ENCOUNTER → 2021-05-19 | Outpatient (CLI) | payer MEDICARE, MEDICAID ==
[~2021-05-19] MED LIST: AMLO1TAB25 PO; ASPI81CH8 PEG; ATOR1TAB21 PO; CARV25TA PO; CODCAP25 PO; D31000TA2 PO; FURO20TA2 PO; HYDR10TAB PO; KCL PO; LOSA100T50 PO; MAGN250T22 PO; MAGNESIUM PO; [UNRECOGNIZED DRUG - OTHER] PO; [UNRECOGNIZED DRUG - OTHER] PO
[2021-05-20 13:00] LABS: DRVV SCREEN 49.6 SEC
[2021-05-20 13:07] LABS: PTT LUPUS TYPE ANTICOAG SCREEN 1.3 (0-1.2)
[2021-05-20 13:15] LABS: LUPUS CONFIRM RATIO 1.2
[2021-05-20 13:17] LABS: NORMALIZED RATIO 1.08 (0.00-1.20)
== END ==
LOC: M LAB 11:30
PROVIDERS: ATTEND Psychiatry & Neurology Neurology
DX: I63.9 Cerebral infarction, unspecified (principal)

== ENCOUNTER → 2021-07-18 | Outpatient (CLI) | payer MEDICARE, MEDICAID ==
[2021-07-18 15:51] LABS: BASO # 0.1 10^3/uL (0.0-0.2); BASO % 0.7 % (0.0-1.0); EOS # 0.2 10^3/uL (0.0-0.5); EOS % 2.3 % (0.0-3.0); HEMATOCRIT 41.9 % (36.0-47.0); HEMOGLOBIN 13.8 g/dl (12.0-15.5); LYMPH # 1.7 10^3/uL (1.5-5.0); LYMPH % 20.7 % (24.0-44.0); MEAN CORPUSCULAR HEMOGLOBIN 28.9 pg (27.0-33.0); MEAN CORPUSCULAR HGB CONC 32.9 g/dl (32.0-36.5); MEAN CORPUSCULAR VOLUME 87.7 fl (80.0-96.0); MONO # 0.7 10^3/uL (0.0-0.8); MONO % 8.1 % (2.0-8.0); NEUTROPHILS # 5.7 10^3/uL (1.5-8.5); NEUTROPHILS % 67.8 % (36.0-66.0); PLATELET COUNT, AUTOMATED 241 10^3/uL (150-450); RED BLOOD COUNT 4.78 10^6/uL (4.00-5.40); WHITE BLOOD COUNT 8.4 10^3/uL (4.0-10.0)
[2021-07-18 16:32] LABS: ALBUMIN 3.9 GM/DL (3.2-5.2); ALT/SGPT 31 U/L (12-78); BILIRUBIN,TOTAL 1.1 MG/DL (0.2-1.0); BLOOD UREA NITROGEN 12 MG/DL (7-18); CALCIUM LEVEL 9.6 MG/DL (8.8-10.2); CARBON DIOXIDE LEVEL 27 MEQ/L (21-32); CHLORIDE LEVEL 106 MEQ/L (98-107); CHOLESTEROL LEVEL 169 MG/DL (<200); CHOLESTEROL RISK RATIO 1.942 (<5); CREATININE FOR GFR 0.83 MG/DL (0.55-1.30); GLOMERULAR FILTRATION RATE > 60.0 (>39); GLUCOSE, FASTING 106 MG/DL (70-100); HDL CHOLESTEROL 87 MG/DL (>40); LDL CHOLESTEROL 67 MG/DL (<100); NON-HDL-C 82 MG/DL; POTASSIUM SERUM 3.8 MEQ/L (3.5-5.1); SODIUM LEVEL 139 MEQ/L (136-145); TOTAL PROTEIN 7.9 GM/DL (6.4-8.2); TRIGLYCERIDES LEVEL 76 MG/DL (<150)
== END ==
LOC: M LAB 13:47
PROVIDERS: ATTEND Internal Medicine
DX: I10 Essential (primary) hypertension (principal); E78.5 Hyperlipidemia, unspecified